=== PATIENT | male | born 1985 | race Caucasian/White ===

== ENCOUNTER 2023-01-18 18:37 | Inpatient (IN) | payer OTHER, SELFPAY ==
[2023-01-18] VITALS (18 sets, daily range): BP systolic 105–143; BP diastolic 59–93; PULSE 83–121; RESP 8–31; TEMP 36.7; O2SAT 93–100
--- NOTE | ~2023-01-18 | XR_ITS ---
XR chest 1V portable DATE: 01/18/2023 19:28 INDICATION: Shortness of breath. Overdose. TECHNIQUE: Portable supine AP chest on 01/18/2023 COMPARISON: None FINDINGS: Old healed left midclavicular shaft fracture. No pulmonary infiltrate or consolidation, pleural effusion or pulmonary vascular congestion or pneumo thorax is detected. Heart size appears within normal limits. No hilar or mediastinal enlargement. IMPRESSION: No active cardiopulmonary disease Reviewed, dictated and finalized at location A.
[2023-01-18] MEDS: NALOXONE HCL INJ 2 MG/2 ML AMP NASAL (18:37)
[2023-01-18] MEDS: NALOXONE HCL INJ 2 MG/2 ML AMP IV PUSH (18:37)
[2023-01-18] MEDS: ONDANSETRON INJ 4 MG/2 ML VIAL IV PUSH ×2 (18:53→21:00)
[2023-01-18] MEDS: SODIUM CHLORIDE 0.9% IV 1,000 ML 999 ML IV CONT ×2 (18:55→23:02)
[2023-01-18] MEDS: LORazepam INJ (*CRX) 2 MG/ML VIAL 1 MG IV PUSH (19:13)
[2023-01-18 19:28] LABS: Glucose Point of Care 186 mg/dl (65-105)
--- NOTE | 2023-01-18 19:53 | ED.OVERDOSE ---
HPI - Overdose General Chief Complaint: Overdose Stated Complaint: unknown Time Seen by Provider: 01/18/23 18:39 History of Present Illness HPI Narrative: Patient is a 28 something male, brought in by friends and dropped off in the parking lot. He was brought in unresponsive, apenic. After narcan, patient endorses history of benzo dependence as well as history of fentanyl and heroin use. He notes he has had recent hospitalizations because he has been trying to get off of benzodiazapines. Notes no nausea, no known abscesses, no fever. On further discussion with patient he does note extensive benzodiazepine and alcohol use. He states it has been several days since he last drank crease benzodiazepines and he has been having significant tremors as well as 2 withdrawal seizures. He additionally notes that he is supposed to be on Suboxone but this several days ago as well and today he decided to use fentanyl in attempt to end his life because his withdrawal symptoms are so excessive. He additionally shows me a wound that has been present from local injections over his gluteus on the right side. He notes that he went to an urgent care and they applied a dressing to this wound. Related Data Allergies Allergy/AdvReac Type Severity Reaction Status Date / Time ciprofloxacin [From Cipro] Allergy Unknown Verified 01/18/23 18:53 trazodone Allergy Unknown Verified 01/18/23 18:53 Review of Systems Review of Systems: ROS unobtainable: Yes unobtainable due to mental status PMFSH Social History Social History Substance use type: opiates and prescription drug Exam Narrative: GENERAL: ill appearing, in acute distress HEAD: Normocephalic, atraumatic. EYES: pinpoint pupils. ENT: Nares clear. Mucous membranes moist. NECK: Supple. CHEST: No spontaneous respirations. HEART: Tachycardic. Normal peripheral pulses. ABDOMEN: Soft, nontender, nondistended. EXTREMITIES: rigid extremities SKIN: Pale, cool NEURO: Unresponsive. Course Course Emergency Course: patient seen evaluated on arrival to the emergency department. He is placed on the monitor, 2 mg of intranasal Narcan given with no response. IV access is obtained and to more of IV Narcan given to patient. He has returned to spontaneous respirations and is able to provide brief history however he seems to be withholding. Will do CXR, EKG, basic lab work. Initially declines taking opiates, later does endorse taking opiates. No obvious abscesses seen. He is tremulous, concern for some benzodiazapine withdrawal. Notified by nursing that patient is suicidal. Will reevaluate. Additional history obtained by patient and placed in HPI. Concern for opiate/suboxone withdrawal in addition to benzodiazapine withdrawal. 16mg bupenorphine ordered and additional zofran and ativan. I did speak with Dr. Lucero regarding patient, agrees that ICU is best place for him at this time and he can be reevaluated in the morning. I did order some IV vancomycin for his gluteal wound. Spoke with Dr. Corbin who accepts patient for admission. CIWA protocol ordered and PRN ativan. Vital Signs Vital signs: Vital Signs Temperature 98.1 F 01/18/23 18:40 Pulse Rate 115 H 01/18/23 18:40 Blood Pressure 143/90 H 01/18/23 18:40 Pulse Oximetry 100 01/18/23 18:40 Oxygen Delivery Bag Valve Mask 01/18/23 18:40 Temperature 98.1 F 01/18/23 18:40 Pulse Rate 104 H 01/18/23 22:34 Respiratory Rate 22 H 01/18/23 22:34 Blood Pressure 106/60 01/18/23 22:34 Pulse Oximetry 100 01/18/23 22:34 Oxygen Delivery Bag Valve Mask 01/18/23 18:40 MDM - Overdose Lab Data 01/18/23 20:20 01/18/23 20:20 Labs: Lab Results 01/18/23 01/18/23 Range/Units 18:55 20:20 WBC 9.6 (4.5-10.0) K/mm3 RBC 4.47 L (4.6-6.20) M/mm3 Hgb 12.2 L (14.0-18.0) g/dL Hct 37.7 L (42.0-52.0) % MCV 84.3 (80-100) fl MCH 27.3 (26-34) pg MCHC 32.4 (32-36)
[2023-01-18 20:27] LABS: Basophils Absolute Auto 0.1 K/mm3 (0.0-0.1); Basophils Percent Auto 0.7 % (0.2-1.2); Eosinophils Absolute Auto 0.1 K/mm3 (0-0.3); Eosinophils Percent Auto 0.9 % (0-4.4); Hematocrit 37.7 % (42.0-52.0); Hemoglobin 12.2 g/dL (14.0-18.0); Immature Granulocyte Absolute 0.04 K/mm3 (0.00-0.031); Immature Granulocyte Percent A 0.4 % (0-0.5); Lymphocytes Absolute Auto 1.28 K/mm3 (0.9-3.2); Lymphocytes Percent Auto 13.4 % (18.3-44.2); Mean Corpuscular HGB Conc 32.4 g/dl (32-36); Mean Corpuscular Hemoglobin 27.3 pg (26-34); Mean Corpuscular Volume 84.3 fl (80-100); Monocytes Absolute Auto 0.7 K/mm3 (0.1-0.6); Monocytes Percent Auto 7.5 % (2.6-8.5); Neutrophils Absolute Auto 7.4 K/mm3 (1.3-6.7); Neutrophils Percent Auto 77.1 % (45.5-73.1); Platelet Count Result 261 k/mm3 (150-375); Red Blood Count 4.47 M/mm3 (4.6-6.20); Red Cell Distribution Width 14.9 % (11.5-14.5); White Blood Count 9.6 K/mm3 (4.5-10.0)
[2023-01-18] MEDS: LORazepam INJ (*CRX) 2 MG/ML VIAL IV PUSH ×2 (20:31→22:34)
[2023-01-18 20:37] LABS: Alanine Aminotransferase 54 U/L (6-50); Albumin Level 4.3 g/dL (3.5-5.1); Alkaline Phosphatase 87 U/L (38-126); Anion Gap 10 mmol/L (8-16); Aspartate Amino Transferase 33 U/L (17-59); Bilirubin,Total 0.8 mg/dL (0.2-1.3); Blood Urea Nitrogen 11 mg/dL (9-20); Calcium 8.5 mg/dL (8.4-10.2); Carbon Dioxide 26 mmol/L (22-30); Chloride 101 mmol/L (98-107); Estimated CRCL calculation 110 ml/min; Estimated Glomerular Filt Rate > 60; Ethanol < 10 mg/dL (<10); Glucose 109 mg/dL (65-110); Potassium 3.7 mmol/L (3.4-5.0); Sodium 137 mmol/L (137-145)
[2023-01-18] MEDS: BUPRENORPHINE HCL (*CRX) 2 MG SUBLINGUAL TABLET 16 MG PO (22:19)
--- NOTE | 2023-01-18 23:13 | PM.IMHP ---
H&P: HPI History of Present Illness Date/Time: 01/18/23 23:13 Chief Complaint: patient was brought in by friends and dropped off in the parking lot of the hospital. 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 He was brought in by friends and dropped off in the parking lot of the hospital. Patient had pinpoint pupils pointing towards probable opiate overdose. Narcan was given and patient became more alert but combative. On questioning, he gives history of benzodiazepine dependence as well as fentanyl and heroin use. He said that he has been using upto 20 pills of benzodiazepines in a day. It has been several days since he had benzodiazepines and he was having withdrawal seizures even while he was traveling on a bus from out of [facility] to come and see his mother. He has been prescribed Suboxone, but he decided to use fentanyl in an attempt to end his life because of excessive benzodiazepine withdrawal symptoms. He also has a large wound over his right buttock secondary to repeated fentanyl injections. He is confabulating and has flight of ideas. Given his polydrug abuse, life-threatening condition and suicide attempt and ideation, rail specialist was consulted and patient is being admitted to ICU for close management and optimization. Review of Systems Review of Systems: He is confabulating and has flight of ideas due to polydrug use ROS unobtainable: Yes unobtainable due to medical condition and unobtainable due to mental status PMFSH Past Medical History Medical History (Updated 01/19/23 @ 03:22 by Antonio Corbin MD) Illicit drug use Nicotine dependence, cigarettes, with unspecified nicotine-induced disorders Social History Social History Smoking packs per day: 1 Smoking cigarettes per day: 20.0 Years smoked: 20 Smoking pack-years: 20.00 Smoking status: Current every day smoker Tobacco type: cigarettes and e-cigarettes/vaping Alcohol intake: current Substance use type: heroin, opiates, IV drugs and prescription drug Other substance usage details: benzos Last use: 01/18/2023 Lack of Transportation: YES Lack of Food: Often True Current Housing: I Do Not Have Housing Concerned About Future Housing: YES Difficulty Paying Gas/Electric Bills: YES Difficulty Paying for Meds: YES Currently Unemployed: YES Education: High School Diploma/GED Difficulty w/ Childcare or Family Care: No Spiritual care concerns: No Meds Home Medications and Allergies Home Medications Medication Instructions Recorded Confirmed Type buprenorphine 8 mg-naloxone 2 mg 1 film sublingual Q12H 01/18/23 01/19/23 History sublingual film gabapentin 600 mg tablet 600 mg PO TID PRN neuropathy 01/18/23 01/18/23 History Allergies Allergy/AdvReac Type Severity Reaction Status Date / Time ciprofloxacin [From Cipro] Allergy Unknown Verified 01/18/23 18:53 trazodone Allergy Unknown Verified 01/18/23 18:53 Vital Signs Vital Signs - 24 hr 01/18/23 18:40 01/18/23 18:49 01/18/23 18:51 Temperature 36.7 C Pulse Rate 115 H 103 H Respiratory Rate 18 Blood Pressure 143/90 H Pulse Oximetry 100 Oxygen Delivery Bag Valve Mask 01/18/23 19:00 01/18/23 20:23 01/18/23 20:31 Temperature Pulse Rate 99 119 H 110 H Respiratory Rate 8 L 13 24 H Blood Pressure 105/59 L Pulse Oximetry 100 97 100 Oxygen Delivery 01/18/23 20:45 01/18/23 20:46 01/18/23 21:00 Temperature Pulse Rate 112 H 113 H 111 H Respiratory Rate 31 H 10 L 19 Blood Pressure 117/80 122/82 Pulse Oximetry 96 100 99 Oxygen Delivery 01/18/23 21:01 01/18/23 21:17 01/18/23 21:31 Temperature Pulse Rate 107 H 112 H 112 H Respiratory Rate 17 13 14 Blood Pressure Pulse Oximetry 96 93 93 Oxygen Delivery 01/18/23 21:46 01/18/23 22:00 01/18/23
--- NOTE | 2023-01-18 23:19 | ECG_ITS ---
Measurements Intervals [place] Rate: 70 P: -11 WI: 176 QRS: 81 QRSD: 102 T: 63 QT: 380 QTc: 410 Interpretive Statements SINUS RHYTHM ST ELEVATION IN DIFFUSE LEADS- PROBABLY EARLY REPOLARIZATION ABNORMALITY BASELINE ARTIFACT- I, II, III, AVR, AVL BORDERLINE ECG NO PREVIOUS ECG AVAILABLE FOR COMPARISON Electronically Signed On 01-19-2023 6:38:10 CDT by Lan Mas D.O.
--- NOTE | 2023-01-18 23:52 | PC.NURSE ---
When I took report the off going nurse informed me that an EKG had been done. The patient still had ekg stickers on his body and reported to me that they had done an ekg. It was not charted and I was unable to find the ekg so I did an additional ekg.
[2023-01-19] VITALS (20 sets, daily range): BP systolic 73–132; BP diastolic 52–83; PULSE 56–98; RESP 10–24; TEMP 36.3–36.9; O2SAT 93–98; BMI 22.1
--- NOTE | 2023-01-19 00:14 | ADMGEN ---
This patient, Franco Franco, was admitted to Intensive Care Unit-4 on 01/18/2023 at 2350. Patient/family oriented to hospital policies and general routines including ID bracelet, bed and alarms, visiting hours, pain management, procedures, bathroom and other care routines, personal items, smoking policy, room service/diet, and visiting hours. Information on how to activate the Rapid Response Team has been discussed. Patient/Family are encouraged to report perceived risks to care and to ask questions if they do not understand what they are told or what they should do.
[2023-01-19] MEDS: LORazepam INJ (*CRX) 2 MG/ML VIAL IV PUSH ×3 (01:24→11:42)
[2023-01-19 02:16] LABS: Influenza A QL RT-PCR Negative (Negative); Influenza B QL RT-PCR Negative (Negative); RSV RNA, RT-PCR Negative (Negative); SARS-CoV-2 RNA PCR Negative (Negative)
[2023-01-19] MEDS: MAG HYDROX/AL HYDROX/SIMETH 30 ML UDC PO (04:30)
[2023-01-19] MEDS: SODIUM CHLORIDE 0.9% IV 1,000 ML 100 ML IV CONT ×2 (04:30→14:13)
[2023-01-19 04:47] LABS: Appearance Urine Clear (Clear); Bacteria Urine None Seen /hpf; Bilirubin Urine Negative (Negative); Blood Urine Negative (Negative); Color Urine Yellow (Yellow); Glucose Urine UA Negative (Negative); Hyaline Casts Urine Present /lpf; Ketones Urine Negative (Negative); Leukocyte Esterase Ur Negative LEU/UL (Negative); Mucus Urine Present /lpf; Nitrate Urine Negative (Negative); Protein Urine Trace mg/dL (Negative); RBC Urine 0-2 /hpf (0-2); Specific Grav Ur 1.021 (1.001-1.035); Squamous Epithelial Cell Urine None seen /hpf (Few); Urobilinogen Urine 0.2 mg/dL (<2.0); WBC Urine 0-5 /hpf
[2023-01-19 04:48] LABS: Add Urine Microscopic? YES
[2023-01-19 04:50] LABS: Amphetamine Screen Urine Negative (Negative); Barbiturate Screen Urine Negative (Negative); Benzodiazepines Screen Urine Positive (Negative); Cannabinoid Screen Urine Negative (Negative); Cocaine Screen Urine Negative (Negative); Methadone Screen Urine Negative (Negative); Opiate Screen Urine Negative (Negative); Phencyclidine Screen Urine Negative (Negative)
[2023-01-19 04:59] LABS: Hematocrit 35.4 % (42.0-52.0); Hemoglobin 12.1 g/dL (14.0-18.0); Mean Corpuscular HGB Conc 34.2 g/dl (32-36); Mean Corpuscular Hemoglobin 28.3 pg (26-34); Mean Corpuscular Volume 82.7 fl (80-100); Mean Platelet Volume 9.6 fl (7.4-10.4); Platelet Count Result 276 k/mm3 (150-375); Red Blood Count 4.28 M/mm3 (4.6-6.20); Red Cell Distribution Width 14.7 % (11.5-14.5); White Blood Count 11.3 K/mm3 (4.5-10.0)
[2023-01-19 05:09] LABS: Anion Gap 9 mmol/L (8-16); Blood Urea Nitrogen 8 mg/dL (9-20); Calcium 8.4 mg/dL (8.4-10.2); Carbon Dioxide 28 mmol/L (22-30); Chloride 100 mmol/L (98-107); Estimated CRCL calculation 128 ml/min; Estimated Glomerular Filt Rate > 60; Glucose 116 mg/dL (65-110); Magnesium 1.9 mg/dL (1.6-2.3); Phosphorus 4.1 mg/dL (2.5-4.5); Potassium 3.7 mmol/L (3.4-5.0); Sodium 137 mmol/L (137-145)
[2023-01-19] MEDS: SODIUM CHLORIDE 0.9% IV 1,000 ML 999 ML IV CONT ×2 (07:47→18:20)
[2023-01-19] MEDS: ONDANSETRON INJ 4 MG/2 ML VIAL (09:04)
[2023-01-19] MEDS: GABAPENTIN 300 MG CAPSULE 600 MG PO ×3 (09:05→18:26)
[2023-01-19] MEDS: dexmedeTOMIDine 400 MCG/100 ML 400 MCG/100 ML BAG IV CONT (09:05)
--- NOTE | 2023-01-19 09:09 | WPDCNINT ---
Assessment and Plan Assessment and plan (1) Polysubstance abuse: Code(s): F19.10 - Other psychoactive substance abuse, uncomplicated Status: Acute Assessment and Plan: Pt with Benzos, ETOH, heroine and fentanyl abuse. Currently going through withdrawal so with symptoms of anxiety, tremors, hallucinations, feels like insects crawling on him. -he also stated that he had some seizures in the last week also due to withdrawal. He takes gabapentin which I will continue -starting patient on Precedex infusion -p.r.n. Valium and Ativan -additional IV fluid bolus -continue to monitor (2) Benzodiazepine withdrawal: Code(s): F13.939 - Sedative, hypnotic or anxiolytic use, unspecified with withdrawal, unspecified Status: Acute Assessment and Plan: As above (3) Opioid overdose: Code(s): T40.2X1A - Poisoning by other opioids, accidental (unintentional), initial encounter Status: Acute Assessment and Plan: As above (4) Alcohol abuse: Code(s): F10.10 - Alcohol abuse, uncomplicated Status: Acute Assessment and Plan: Will add folic acid and thiamine (5) Buttock wound: Code(s): S31.809A - Unspecified open wound of unspecified buttock, initial encounter Status: Acute Assessment and Plan: Patient has been started on vancomycin (01/18) -appreciate wound care evaluation, recommended topical application of mupirocin (6) Suicidal ideation: Code(s): R45.851 - Suicidal ideations Status: Acute Assessment and Plan: Patient did tell me that he snorted fentanyl on the day of admission so he could relieve himself from the misery of his withdrawal symptoms -when patient is medically stable will have crisis management and care coordination evaluate the patient for placement in a psych facility Plan DVT prophylaxis: Lovenox Stress ulcer prophylaxis: Protonix Nutrition: Regular diet Code Status: Full code Critical Care Time Spent: 47 minutes Due to a high probability of clinically significant, life threatening deterioration, the patient required my highest level of preparedness to intervene emergently and I personally spent this critical care time directly and personally managing the patient. This critical care time included obtaining a history; examining the patient; pulse oximetry; ordering and review of studies; arranging urgent treatment with development of a management plan; evaluation of patient's response to treatment; frequent reassessment; and discussions with other providers. It was exclusive of separately billable procedures and treating other patients and teaching time. Please see Assessment and Plan section and the rest of the note for further information on patient assessment and treatment This dictation may have been done utilizing a voice recognition system. Attempts have been made to correct errors. However, there may be uncorrected grammatical, spelling, and recognitions errors present. Hospital Staff Pharmacist Consult Note Consult date: 01/19/23 Reason for consult: Benzodiazepine, opioid, heroin, alcohol withdrawal HPI: Franco Franco is a 37 year old male with past medical history of poly substance abuse, alcohol withdrawal, multiple hospital admissions for withdrawals in the [facility] presented to the ED on 01/18/2023 after being dropped off in the parking lot. According the patient he was traveling from [place] to [place] to get enrolled in a rehab program in [place] so he could get some help for his substance and alcohol abuse. He stated he was withdrawing in the bus and had to be dropped off because he was throwing up and was very anxious. He hitch hiked with a stranger who dropped him to the ER and left. Patient states he drinks 2/5 of liquor every day, he has been injecting fentanyl, heroin and xylazine in his right buttock where he has a wound. He states he also ingests 20-24 pills of benzodiazepine daily. He has also had histo
[2023-01-19] MEDS: diazePAM (*CRX) 5 MG TABLET PO (09:16)
[2023-01-19] MEDS: MUPIROCIN 2% OINT 22 GM TUBE 1 APPLIC TOPICAL (11:25)
[2023-01-19] MEDS: FOLIC ACID 1 MG/0.2 ML INJ IV PUSH (11:26)
[2023-01-19] MEDS: THIAMINE HCL 200 MG/2 ML VIAL 100 MG IV PUSH (11:26)
[2023-01-19] MEDS: ENOXAPARIN 40 MG/0.4 ML SYRINGE SUB-Q (11:27)
[2023-01-19] MEDS: PANTOPRAZOLE SODIUM IV 40 MG VIAL IV PUSH (11:27)
[2023-01-19 12:05] LABS: Glucose Point of Care 116 mg/dl (65-105)
[2023-01-19] MEDS: diazePAM INJ (*CRX) 10 MG/2 ML SYRINGE 5 MG IV PUSH ×2 (15:59→21:39)
[2023-01-19] MEDS: BUPRENORPHINE HCL (*CRX) 2 MG SUBLINGUAL TABLET 4 MG PO (21:35)
[2023-01-19] MEDS: LACTATED RINGERS 1,000 ML 999 ML IV CONT (21:40)
--- NOTE | 2023-01-19 23:20 | PC.NURSE ---
2320 01/19 transdermal patch assessment not done because pt refused medication
[2023-01-20] VITALS (13 sets, daily range): BP systolic 94–154; BP diastolic 55–94; PULSE 53–95; RESP 15–24; TEMP 36.5–36.8; O2SAT 92–98
[2023-01-20] MEDS: LORazepam INJ (*CRX) 2 MG/ML VIAL IV PUSH ×9 (00:49→22:30)
[2023-01-20 01:18] LABS: Glucose Point of Care 136 mg/dl (65-105)
[2023-01-20] MEDS: diazePAM INJ (*CRX) 10 MG/2 ML SYRINGE 5 MG IV PUSH (03:47)
[2023-01-20] MEDS: SODIUM CHLORIDE 0.9% IV 1,000 ML 100 ML IV CONT (03:48)
[2023-01-20 04:25] LABS: Basophils Absolute Auto 0.1 K/mm3 (0.0-0.1); Basophils Percent Auto 1.4 % (0.2-1.2); Eosinophils Absolute Auto 0.1 K/mm3 (0-0.3); Eosinophils Percent Auto 2.3 % (0-4.4); Hematocrit 32.8 % (42.0-52.0); Hemoglobin 9.9 g/dL (14.0-18.0); Immature Granulocyte Absolute 0.01 K/mm3 (0.00-0.031); Immature Granulocyte Percent A 0.2 % (0-0.5); Lymphocytes Absolute Auto 1.98 K/mm3 (0.9-3.2); Lymphocytes Percent Auto 38.6 % (18.3-44.2); Mean Corpuscular HGB Conc 30.2 g/dl (32-36); Mean Corpuscular Hemoglobin 27.8 pg (26-34); Mean Corpuscular Volume 92.1 fl (80-100); Mean Platelet Volume 9.8 fl (7.4-10.4); Monocytes Absolute Auto 0.4 K/mm3 (0.1-0.6); Monocytes Percent Auto 8.6 % (2.6-8.5); Neutrophils Absolute Auto 2.5 K/mm3 (1.3-6.7); Neutrophils Percent Auto 48.9 % (45.5-73.1); Platelet Count Result 154 k/mm3 (150-375); Red Blood Count 3.56 M/mm3 (4.6-6.20); Red Cell Distribution Width 14.8 % (11.5-14.5); White Blood Count 5.1 K/mm3 (4.5-10.0)
[2023-01-20 04:37] LABS: Alanine Aminotransferase 43 U/L (6-50); Albumin Level 3.4 g/dL (3.5-5.1); Alkaline Phosphatase 106 U/L (38-126); Anion Gap 8 mmol/L (8-16); Aspartate Amino Transferase 30 U/L (17-59); Bilirubin,Total 0.3 mg/dL (0.2-1.3); Blood Urea Nitrogen 6 mg/dL (9-20); Calcium 7.7 mg/dL (8.4-10.2); Carbon Dioxide 22 mmol/L (22-30); Chloride 104 mmol/L (98-107); Estimated CRCL calculation 128 ml/min; Estimated Glomerular Filt Rate > 60; Glucose 107 mg/dL (65-110); Magnesium 2.1 mg/dL (1.6-2.3); Phosphorus 3.9 mg/dL (2.5-4.5); Potassium 3.9 mmol/L (3.4-5.0); Sodium 134 mmol/L (137-145)
--- NOTE | 2023-01-20 04:59 | PC.NURSE ---
Mom called in evening and stated the person who dropped pt off still had his phone and belongings because they answered the patients phone when she called and verified this. Mother in another state and wants patient to get his belongings and phone back-asks that care coordination calls her today. Pt is hyperfixated on getting belongings back today and thinks the man who dropped him off is supposed to go to detox this AM. Asked this nurse to call MOM for cell phone number and see if he answers phone and ask to drop belongings off. Two calls made that were unanswered. patient does not know gentleman's last name, but remembers a white car.
--- NOTE | 2023-01-20 05:14 | PC.NURSE ---
Patient's cell number is
--- NOTE | 2023-01-20 06:46 | PC.NURSE ---
Patient increasingly agitated over belongings. States he needs his suboxone increased. CIWA 14. Precedex increased to 0.4 and PRN ativan given. Patient also states that name of the person who dropped him off is Km Mejia (Matt).
[2023-01-20] MEDS: PANTOPRAZOLE SODIUM IV 40 MG VIAL IV PUSH (08:28)
[2023-01-20] MEDS: THIAMINE HCL 200 MG/2 ML VIAL 100 MG IV PUSH (08:29)
[2023-01-20] MEDS: GABAPENTIN 300 MG CAPSULE 600 MG PO ×3 (08:29→17:24)
[2023-01-20] MEDS: ENOXAPARIN 40 MG/0.4 ML SYRINGE SUB-Q (08:29)
[2023-01-20] MEDS: diazePAM INJ (*CRX) 10 MG/2 ML SYRINGE IV PUSH ×3 (08:30→20:57)
[2023-01-20] MEDS: MUPIROCIN 2% OINT 22 GM TUBE 1 APPLIC TOPICAL (08:31)
[2023-01-20] MEDS: NICOTINE (*PBKC) 21 MG PATCH 1 PATCH TRANSDERM (08:31)
[2023-01-20] MEDS: FOLIC ACID 1 MG/0.2 ML INJ IV PUSH (08:36)
[2023-01-20] MEDS: BUPRENORPHINE HCL (*CRX) 2 MG SUBLINGUAL TABLET 8 MG PO ×2 (08:36→17:23)
--- NOTE | 2023-01-20 09:30 | WPDINTPN ---
Progress Note: A&P Assessment and Plan (1) Polysubstance abuse: Code(s): F19.10 - Other psychoactive substance abuse, uncomplicated Status: Acute Assessment and Plan: Pt with Benzos, ETOH, heroine and fentanyl abuse. Currently going through withdrawal so with symptoms of anxiety, tremors, hallucinations, feels like insects crawling on him. -he also stated that he had some seizures in the last week also due to withdrawal.? He takes gabapentin which I will continue -starting patient on Precedex infusion -increase Valium -continue p.r.n. Ativan -continue maintenance IV fluids -continue to monitor (2) Benzodiazepine withdrawal: Code(s): F13.939 - Sedative, hypnotic or anxiolytic use, unspecified with withdrawal, unspecified Status: Acute Assessment and Plan: as above (3) Opioid overdose: Code(s): T40.2X1A - Poisoning by other opioids, accidental (unintentional), initial encounter Status: Acute Assessment and Plan: Increase buprenorphine (4) Alcohol abuse: Code(s): F10.10 - Alcohol abuse, uncomplicated Status: Acute Assessment and Plan: continue folic acid, thiamine -will Precedex (5) Buttock wound: Code(s): S31.809A - Unspecified open wound of unspecified buttock, initial encounter Status: Acute Assessment and Plan: appreciate wound care evaluation, recommended topical application of mupirocin -continue vancomycin (01/19) -01/19: Blood culture, preliminary results are negative (6) Suicidal ideation: Code(s): R45.851 - Suicidal ideations Status: Acute Assessment and Plan: Patient did tell me that he snorted fentanyl on the day of admission so he could relieve himself from the misery of his withdrawal symptoms -when patient is medically stable will have crisis management and care coordination evaluate the patient for placement in a psych facility Plan DVT prophylaxis:? Lovenox Stress ulcer prophylaxis:? Protonix Nutrition:? Regular diet Code Status:? Full code Critical Care Time Spent:? 33 minutes ?Due to a high probability of clinically significant, life threatening deterioration, the patient required my highest level of preparedness to intervene emergently and I personally spent this critical care time directly and personally managing the patient. This critical care time included obtaining a history; examining the patient; pulse oximetry; ordering and review of studies; arranging urgent treatment with development of a management plan; evaluation of patient's response to treatment; frequent reassessment; and discussions with other providers. It was exclusive of separately billable procedures and treating other patients and teaching time. Please see Assessment and Plan section and the rest of the note for further information on patient assessment and treatment This dictation may have been done utilizing a voice recognition system. Attempts have been made to correct errors. However, there may be uncorrected grammatical, spelling, and recognitions errors present. Subjective Date/time seen: 01/20/23 09:30 Interval history: Reason for consult: Benzodiazepine, opioid, heroin, alcohol withdrawal 01/20/2023: Patient seen and examined the ICU, is awake, alert remains anxious. Continues to have tremors, pressured speech. Requesting to increase Valium and buprenorphine. Patient denies any shortness of breath, chest pain, abdominal pain, vomiting. He did have some nausea overnight but no vomiting. Patient is hemodynamically stable, afebrile, adequate urine output Review of Systems Review of Systems: All systems reviewed & are unremarkable except as noted in HPI and below Exam Narrative: General: Anxious young gentleman with pressured speech HEENT:? Pupils equal and reactive, sclera is clear Neck:? Supple Respiratory:? Clear to auscultation bilaterally Cardiac:? S1-S2 normal, regular rate and rhythm Abdomen:? S
[2023-01-20 10:27] LABS: Vancomycin Trough 11.3 ug/mL (10.0-20.0)
--- NOTE | 2023-01-20 11:45 | PCFNICU ---
ICU Rounding Note: Pt current nutrition is Regular Last recorded weight is 83 kg up from 74.3 kg on admit. Bowel Motility: No BM reported. Labs Reviewed:Na 134, Hct 32.8,Hgb 9.9 Meds Noted:Ativan, Precedex, NS, Vancomycin. Skin: No pressure ulcers reported Additional Notes: Patient remains on regular diet with Ensure compact BID , eating 100% of meals. Diet order is appropriate. No further nutritional interventions needed. Following daily in ICU rounds, monitor for LOS every 7 days.
[2023-01-20 12:00] LABS: Glucose Point of Care 118 mg/dl (65-105)
[2023-01-20] MEDS: ONDANSETRON INJ 4 MG/2 ML VIAL IV PUSH (12:50)
[2023-01-20] MEDS: MAG HYDROX/AL HYDROX/SIMETH 30 ML UDC PO (14:39)
[2023-01-21] VITALS: BP 122/72; PULSE 90; RESP 26; TEMP 36.9; O2SAT 93
[2023-01-21] MEDS: LORazepam INJ (*CRX) 2 MG/ML VIAL IV PUSH ×7 (01:27→22:02)
[2023-01-21] MEDS: diazePAM INJ (*CRX) 10 MG/2 ML SYRINGE IV PUSH ×4 (02:59→21:08)
[2023-01-21 03:48] LABS: Estimated CRCL calculation 118 ml/min; Estimated Glomerular Filt Rate > 60
[2023-01-21 04:00] VITALS: PULSE 99
[2023-01-21 08:00] VITALS: BP 109/69; PULSE 77; PULSE 79; RESP 15; TEMP 37.2; O2SAT 93
[2023-01-21] MEDS: THIAMINE HCL 200 MG/2 ML VIAL 100 MG IV PUSH (08:22)
[2023-01-21] MEDS: GABAPENTIN 300 MG CAPSULE 600 MG PO ×3 (08:23→17:00)
[2023-01-21] MEDS: ENOXAPARIN 40 MG/0.4 ML SYRINGE SUB-Q (08:23)
[2023-01-21] MEDS: BUPRENORPHINE HCL (*CRX) 2 MG SUBLINGUAL TABLET 8 MG PO ×3 (08:23→21:07)
[2023-01-21] MEDS: PANTOPRAZOLE SODIUM IV 40 MG VIAL IV PUSH (08:24)
[2023-01-21] MEDS: MUPIROCIN 2% OINT 22 GM TUBE 1 APPLIC TOPICAL (08:24)
[2023-01-21] MEDS: NICOTINE (*PBKC) 21 MG PATCH 1 PATCH TRANSDERM (08:24)
[2023-01-21] MEDS: FOLIC ACID 1 MG/0.2 ML INJ IV PUSH (09:52)
[2023-01-21 10:16] LABS: Basophils Absolute Auto 0.1 K/mm3 (0.0-0.1); Basophils Percent Auto 0.8 % (0.2-1.2); Eosinophils Absolute Auto 0.1 K/mm3 (0-0.3); Eosinophils Percent Auto 1.8 % (0-4.4); Hematocrit 35.8 % (42.0-52.0); Hemoglobin 11.2 g/dL (14.0-18.0); Immature Granulocyte Absolute 0.02 K/mm3 (0.00-0.031); Immature Granulocyte Percent A 0.3 % (0-0.5); Lymphocytes Percent Auto 24.6 % (18.3-44.2); Mean Corpuscular HGB Conc 31.3 g/dl (32-36); Mean Corpuscular Volume 86.3 fl (80-100); Mean Platelet Volume 9.4 fl (7.4-10.4); Monocytes Absolute Auto 0.5 K/mm3 (0.1-0.6); Monocytes Percent Auto 7.5 % (2.6-8.5); Platelet Count Result 184 k/mm3 (150-375); Red Blood Count 4.15 M/mm3 (4.6-6.20); Red Cell Distribution Width 14.6 % (11.5-14.5); White Blood Count 6.1 K/mm3 (4.5-10.0)
[2023-01-21 10:28] LABS: Alanine Aminotransferase 35 U/L (6-50); Albumin Level 3.4 g/dL (3.5-5.1); Alkaline Phosphatase 90 U/L (38-126); Anion Gap 7 mmol/L (8-16); Aspartate Amino Transferase 25 U/L (17-59); Bilirubin,Total 0.7 mg/dL (0.2-1.3); Blood Urea Nitrogen 8 mg/dL (9-20); Calcium 7.8 mg/dL (8.4-10.2); Carbon Dioxide 30 mmol/L (22-30); Chloride 100 mmol/L (98-107); Estimated CRCL calculation 134 ml/min; Estimated Glomerular Filt Rate > 60; Glucose 90 mg/dL (65-110); Magnesium 1.9 mg/dL (1.6-2.3); Potassium 3.6 mmol/L (3.4-5.0); Sodium 137 mmol/L (137-145)
[2023-01-21 12:00] VITALS: PULSE 86
--- NOTE | 2023-01-21 13:31 | PM.IMPN ---
Progress Note: A&P Assessment and Plan (1) Polysubstance abuse: Code(s): F19.10 - Other psychoactive substance abuse, uncomplicated Status: Acute (2) Benzodiazepine withdrawal: Code(s): F13.939 - Sedative, hypnotic or anxiolytic use, unspecified with withdrawal, unspecified Status: Acute (3) Opioid overdose: Code(s): T40.2X1A - Poisoning by other opioids, accidental (unintentional), initial encounter Status: Acute (4) Alcohol abuse: Code(s): F10.10 - Alcohol abuse, uncomplicated Status: Acute (5) Buttock wound: Code(s): S31.809A - Unspecified open wound of unspecified buttock, initial encounter Status: Acute (6) Suicidal ideation: Code(s): R45.851 - Suicidal ideations Status: Acute Plan Patient presented on brought in by friends and drop problem parking lot of the hospital. Patient in 1 to will indicating no opiate overdose allergies Narcan when given and patient became more alert but combative he has a history of fentanyl and heroin use as well as benzodiazepine. Has been using 20 pills of benzodiazepines every day. It has been several days since he had benzodiazepines and was having withdrawal seizure he came from [place] to get to adduction sign clear. Has been prescribed Suboxone I also has been using fentanyl injections. His been admitted to the ICU due to his poorly drug abuse suicide attempt/ideation. He continues to have withdrawal symptoms. He was treated with Precedex drip until 01/20/2023. Is he has been on IV diazepam and p.r.n. lorazepam here. He has also been started on Suboxone currently at 80 mg b.i.d. does. He had right gluteal abscess secondary to intramuscular injection for which has been started on IV vancomycin. Psych will be consulted/crisis team when medically stable. He likely will need to go to drug rehabilitation center for further stabilization given possible suicide intent/ideation likely will need psychiatry evaluation for him to clear to go to a drug rehabilitation center from here. Add clonidine DVT prophylaxis:? Lovenox Stress ulcer prophylaxis:? Protonix Nutrition:? Regular diet Code Status:? Full code Subjective Date/time seen: 01/21/23 13:31 Interval history: Patient presented on brought in by friends and drop problem parking lot of the hospital. Patient in 1 to will indicating no opiate overdose allergies Narcan when given and patient became more alert but combative he has a history of fentanyl and heroin use as well as benzodiazepine. Has been using 20 pills of benzodiazepines every day. It has been several days since he had benzodiazepines and was having withdrawal seizure he came from [place] to get to adduction sign clear. Has been prescribed Suboxone I also has been using fentanyl injections. His been admitted to the ICU due to his poorly drug abuse suicide attempt/ideation. He continues to have withdrawal symptoms. He was treated with Precedex drip until 01/20/2023. Is he has been on IV diazepam and p.r.n. lorazepam here. He has also been started on Suboxone currently at 80 mg b.i.d. does. He had right gluteal abscess secondary to intramuscular injection for which has been started on IV vancomycin. Psych will be consulted/crisis team when medically stable. He likely will need to go to drug rehabilitation center for further stabilization given possible suicide intent/ideation likely will need psychiatry evaluation for him to clear to go to a drug rehabilitation center from here. Review of Systems Review of Systems: All systems reviewed & are unremarkable except as noted in HPI and below Exam Narrative: General: Anxious young gentleman with pressured speech HEENT:? Pupils dilated sclera is clear Neck:? Supple Respiratory:? Clear to auscultation bilaterally coarse breath sound Cardiac:? S1-S2 normal, regular rate and rhythm Abdomen:? Soft, nontender, nondistended, normoactive bowel s
[2023-01-21] MEDS: cloNIDine HCL 0.1 MG TABLET PO ×2 (14:58→21:09)
[2023-01-21 16:00] VITALS: BP 124/80; PULSE 69; RESP 15; TEMP 37.3; O2SAT 94
[2023-01-22] MEDS: LORazepam INJ (*CRX) 2 MG/ML VIAL IV PUSH ×10 (00:15→23:03)
[2023-01-22 00:30] VITALS: BP 106/68; PULSE 74
[2023-01-22] MEDS: diazePAM INJ (*CRX) 10 MG/2 ML SYRINGE IV PUSH ×2 (02:41→08:08)
[2023-01-22] MEDS: BUPRENORPHINE HCL (*CRX) 2 MG SUBLINGUAL TABLET 8 MG PO ×3 (05:48→22:01)
[2023-01-22] MEDS: cloNIDine HCL 0.1 MG TABLET PO ×3 (05:49→22:01)
[2023-01-22 08:00] VITALS: BP 95/70; PULSE 65; PULSE 69; RESP 12; TEMP 36.6; O2SAT 95
[2023-01-22] MEDS: FOLIC ACID 1 MG/0.2 ML INJ IV PUSH (08:06)
[2023-01-22] MEDS: GABAPENTIN 300 MG CAPSULE 600 MG PO ×3 (08:06→16:56)
[2023-01-22] MEDS: PANTOPRAZOLE SODIUM IV 40 MG VIAL IV PUSH (08:07)
[2023-01-22] MEDS: THIAMINE HCL 200 MG/2 ML VIAL 100 MG IV PUSH (08:07)
[2023-01-22] MEDS: NICOTINE (*PBKC) 21 MG PATCH 1 PATCH TRANSDERM (08:07)
[2023-01-22] MEDS: MUPIROCIN 2% OINT 22 GM TUBE 1 APPLIC TOPICAL (08:08)
--- NOTE | 2023-01-22 11:29 | PM.IMPN ---
Progress Note: A&P Assessment and Plan (1) Polysubstance abuse: Code(s): F19.10 - Other psychoactive substance abuse, uncomplicated Status: Acute (2) Benzodiazepine withdrawal: Code(s): F13.939 - Sedative, hypnotic or anxiolytic use, unspecified with withdrawal, unspecified Status: Acute (3) Opioid overdose: Code(s): T40.2X1A - Poisoning by other opioids, accidental (unintentional), initial encounter Status: Acute (4) Alcohol abuse: Code(s): F10.10 - Alcohol abuse, uncomplicated Status: Acute (5) Buttock wound: Code(s): S31.809A - Unspecified open wound of unspecified buttock, initial encounter Status: Acute (6) Suicidal ideation: Code(s): R45.851 - Suicidal ideations Status: Acute Plan Patient presented on brought in by friends and dropped him in the parking lot of the hospital. Patient was brought in unresponsive apneic indicating opiate overdose. Narcan was given and patient became more alert but combative. He has a history of fentanyl and heroin use as well as benzodiazepine. Has been using 20 pills of benzodiazepines every day. It has been off benzos several days and was having withdrawal seizure he came from [place] to get to addiction center here. Has been prescribed Suboxone but also has been using fentanyl injections. His been admitted to the ICU due to his poorly drug abuse suicide attempt/ideation. He continues to have withdrawal symptoms. He was treated with Precedex drip until 01/20/2023. Is he has been on IV diazepam and p.r.n. lorazepam here. He has also been started on Suboxone currently at 80 mg b.i.d. does. He had right gluteal abscess secondary to intramuscular injection for which has been started on IV vancomycin. Psych will be consulted/crisis team when medically stable. He likely will need to go to drug rehabilitation center for further stabilization however given possible suicide intent/ideation likely will need psychiatry evaluation for him to clear to go to a drug rehabilitation center from here. Will switch his diazepam to oral today. Continue Suboxone at 8 mg q.8 hours for his opiate dependence Added clonidine has also helped with his withdrawal symptoms to some extent. Which will be continued DVT prophylaxis:? Lovenox Stress ulcer prophylaxis:? Protonix Nutrition:? Regular diet Code Status:? Full code Subjective Date/time seen: 01/22/23 11:29 Interval history: Patient presented on brought in by friends and drop problem parking lot of the hospital. Patient in 1 to will indicating no opiate overdose allergies Narcan when given and patient became more alert but combative he has a history of fentanyl and heroin use as well as benzodiazepine. Has been using 20 pills of benzodiazepines every day. It has been several days since he had benzodiazepines and was having withdrawal seizure he came from [place] to get to adduction sign clear. Has been prescribed Suboxone I also has been using fentanyl injections. His been admitted to the ICU due to his poorly drug abuse suicide attempt/ideation. He continues to have withdrawal symptoms. He was treated with Precedex drip until 01/20/2023. Is he has been on IV diazepam and p.r.n. lorazepam here. He has also been started on Suboxone currently at 80 mg b.i.d. does. He had right gluteal abscess secondary to intramuscular injection for which has been started on IV vancomycin. Psych will be consulted/crisis team when medically stable. He likely will need to go to drug rehabilitation center for further stabilization given possible suicide intent/ideation likely will need psychiatry evaluation for him to clear to go to a drug rehabilitation center from here. 01/22/2023: Overnight events. Still feels little tremulous. Vitals reviewed. Discussed with the nursing staff. Review of Systems Review of Systems: All systems reviewed & are unremarkable except as noted in HPI and
[2023-01-22] MEDS: diazePAM (*CRX) 10 MG TABLET PO ×2 (12:21→16:56)
[2023-01-22 16:00] VITALS: BP 111/72; PULSE 61; RESP 12; TEMP 36.8; O2SAT 98
[2023-01-22 20:00] VITALS: PULSE 90
[2023-01-22 22:01] VITALS: BP 129/74; PULSE 81
[2023-01-23] VITALS: BP 122/96; PULSE 73; RESP 17; TEMP 36.6; O2SAT 100
[2023-01-23] MEDS: diazePAM (*CRX) 10 MG TABLET PO ×4 (00:01→18:22)
[2023-01-23] MEDS: LORazepam INJ (*CRX) 2 MG/ML VIAL IV PUSH ×7 (05:41→23:23)
[2023-01-23] MEDS: cloNIDine HCL 0.1 MG TABLET PO ×3 (07:38→22:24)
[2023-01-23] MEDS: BUPRENORPHINE HCL (*CRX) 2 MG SUBLINGUAL TABLET 8 MG PO ×3 (07:38→22:22)
[2023-01-23 07:43] VITALS: BP 107/66; PULSE 69; RESP 16; TEMP 36.5; O2SAT 96
[2023-01-23 08:00] VITALS: PULSE 90
[2023-01-23] MEDS: PANTOPRAZOLE SODIUM IV 40 MG VIAL IV PUSH (08:24)
[2023-01-23] MEDS: GABAPENTIN 300 MG CAPSULE 600 MG PO ×3 (08:24→16:23)
[2023-01-23] MEDS: THIAMINE HCL 200 MG/2 ML VIAL 100 MG IV PUSH (08:25)
[2023-01-23] MEDS: FOLIC ACID 1 MG/0.2 ML INJ IV PUSH (08:26)
[2023-01-23] MEDS: NICOTINE (*PBKC) 21 MG PATCH 1 PATCH TRANSDERM (08:26)
[2023-01-23] MEDS: MUPIROCIN 2% OINT 22 GM TUBE 1 APPLIC TOPICAL (09:57)
[2023-01-23] MEDS: SULFAMETHOXAZOLE/TRIMETHOPRIM 800/160 MG DS TABLET 1 TAB PO ×2 (09:57→20:55)
[2023-01-23 12:00] VITALS: PULSE 67
[2023-01-23 16:00] VITALS: BP 101/72; PULSE 52; RESP 12; TEMP 36.6; O2SAT 100
--- NOTE | 2023-01-23 17:30 | PM.IMPN ---
Progress Note: A&P Assessment and Plan (1) Polysubstance abuse: Code(s): F19.10 - Other psychoactive substance abuse, uncomplicated Status: Acute (2) Benzodiazepine withdrawal: Code(s): F13.939 - Sedative, hypnotic or anxiolytic use, unspecified with withdrawal, unspecified Status: Acute (3) Opioid overdose: Code(s): T40.2X1A - Poisoning by other opioids, accidental (unintentional), initial encounter Status: Acute (4) Alcohol abuse: Code(s): F10.10 - Alcohol abuse, uncomplicated Status: Acute (5) Buttock wound: Code(s): S31.809A - Unspecified open wound of unspecified buttock, initial encounter Status: Acute (6) Suicidal ideation: Code(s): R45.851 - Suicidal ideations Status: Acute Plan Patient presented on brought in by friends and dropped him in the parking lot of the hospital. Patient was brought in unresponsive apneic indicating opiate overdose. Narcan was given and patient became more alert but combative. He has a history of fentanyl and heroin use as well as benzodiazepine. Has been using 20 pills of benzodiazepines every day. It has been off benzos several days and was having withdrawal seizure he came from [place] to get to addiction center here. Has been prescribed Suboxone but also has been using fentanyl injections. His been admitted to the ICU due to his poorly drug abuse suicide attempt/ideation. He continues to have withdrawal symptoms. He was treated with Precedex drip until 01/20/2023. Is he has been on IV diazepam and p.r.n. lorazepam here. He has also been started on Suboxone currently at 80 mg b.i.d. does. He had right gluteal abscess secondary to intramuscular injection for which has been started on IV vancomycin. Psych will be consulted/crisis team when medically stable. He likely will need to go to drug rehabilitation center for further stabilization however given possible suicide intent/ideation likely will need psychiatry evaluation for him to clear to go to a drug rehabilitation center from here. Switch to oral diazepam. Continue IV lorazepam p.r.n. as ordered today. COntinue Suboxone at 8 mg q.8 hours for his opiate dependence Added clonidine has also helped with his withdrawal symptoms to some extent. Which will be continued DVT prophylaxis:? Lovenox Stress ulcer prophylaxis:? Protonix Nutrition:? Regular diet Code Status:? Full code Subjective Date/time seen: 01/23/23 17:30 Interval history: Patient presented on brought in by friends and drop problem parking lot of the hospital. Patient in 1 to will indicating no opiate overdose allergies Narcan when given and patient became more alert but combative he has a history of fentanyl and heroin use as well as benzodiazepine. Has been using 20 pills of benzodiazepines every day. It has been several days since he had benzodiazepines and was having withdrawal seizure he came from [place] to get to adduction sign clear. Has been prescribed Suboxone I also has been using fentanyl injections. His been admitted to the ICU due to his poorly drug abuse suicide attempt/ideation. He continues to have withdrawal symptoms. He was treated with Precedex drip until 01/20/2023. Is he has been on IV diazepam and p.r.n. lorazepam here. He has also been started on Suboxone currently at 80 mg b.i.d. does. He had right gluteal abscess secondary to intramuscular injection for which has been started on IV vancomycin. Psych will be consulted/crisis team when medically stable. He likely will need to go to drug rehabilitation center for further stabilization given possible suicide intent/ideation likely will need psychiatry evaluation for him to clear to go to a drug rehabilitation center from here. 01/22/2023: Overnight events. Still feels little tremulous. Vitals reviewed. Discussed with the nursing staff. 01/23/2023: Reports feels more tremulous and anxious. No nausea vomitin
[2023-01-23 22:25] VITALS: BP 107/73; PULSE 87
[2023-01-24] MEDS: diazePAM (*CRX) 10 MG TABLET PO ×3 (01:39→13:52)
[2023-01-24] MEDS: LORazepam INJ (*CRX) 2 MG/ML VIAL IV PUSH ×2 (04:26→11:50)
[2023-01-24 05:04] LABS: Basophils Absolute Auto 0.1 K/mm3 (0.0-0.1); Basophils Percent Auto 1.7 % (0.2-1.2); Eosinophils Absolute Auto 0.3 K/mm3 (0-0.3); Eosinophils Percent Auto 4.7 % (0-4.4); Hematocrit 39.5 % (42.0-52.0); Hemoglobin 12.8 g/dL (14.0-18.0); Immature Granulocyte Absolute 0.03 K/mm3 (0.00-0.031); Immature Granulocyte Percent A 0.5 % (0-0.5); Lymphocytes Absolute Auto 2.06 K/mm3 (0.9-3.2); Lymphocytes Percent Auto 34.7 % (18.3-44.2); Mean Corpuscular HGB Conc 32.4 g/dl (32-36); Mean Corpuscular Hemoglobin 27.8 pg (26-34); Mean Corpuscular Volume 85.7 fl (80-100); Mean Platelet Volume 9.3 fl (7.4-10.4); Monocytes Absolute Auto 0.4 K/mm3 (0.1-0.6); Monocytes Percent Auto 7.1 % (2.6-8.5); Neutrophils Percent Auto 51.3 % (45.5-73.1); Platelet Count Result 250 k/mm3 (150-375); Red Blood Count 4.61 M/mm3 (4.6-6.20); Red Cell Distribution Width 14.9 % (11.5-14.5); White Blood Count 5.9 K/mm3 (4.5-10.0)
[2023-01-24 05:22] LABS: Anion Gap 12 mmol/L (8-16); Blood Urea Nitrogen 21 mg/dL (9-20); Calcium 8.9 mg/dL (8.4-10.2); Carbon Dioxide 27 mmol/L (22-30); Chloride 96 mmol/L (98-107); Estimated CRCL calculation 118 ml/min; Estimated Glomerular Filt Rate > 60; Glucose 125 mg/dL (65-110); Magnesium 2.1 mg/dL (1.6-2.3); Potassium 4.4 mmol/L (3.4-5.0); Sodium 135 mmol/L (137-145)
[2023-01-24 08:00] VITALS: BP 103/71; PULSE 78; RESP 12; TEMP 36.4; O2SAT 98
[2023-01-24] MEDS: THIAMINE HCL 200 MG/2 ML VIAL 100 MG IV PUSH (08:12)
[2023-01-24] MEDS: PANTOPRAZOLE SODIUM IV 40 MG VIAL IV PUSH (08:12)
[2023-01-24] MEDS: FOLIC ACID 1 MG/0.2 ML INJ IV PUSH (08:12)
[2023-01-24] MEDS: MUPIROCIN 2% OINT 22 GM TUBE 1 APPLIC TOPICAL (08:13)
[2023-01-24] MEDS: BUPRENORPHINE HCL (*CRX) 2 MG SUBLINGUAL TABLET 8 MG PO ×2 (08:13→14:16)
[2023-01-24] MEDS: SULFAMETHOXAZOLE/TRIMETHOPRIM 800/160 MG DS TABLET 1 TAB PO (08:13)
[2023-01-24] MEDS: GABAPENTIN 300 MG CAPSULE 600 MG PO ×2 (08:13→13:52)
[2023-01-24] MEDS: cloNIDine HCL 0.1 MG TABLET PO ×2 (08:13→13:52)
--- NOTE | 2023-01-24 08:41 | PC.NURSE ---
Reviewed AM medications to be given. RN notified patient an hour after PO medications were given we could reevaluate his withdrawals. No signs of tremors at the time of assessment, patient asleep prior to entering the room.
--- NOTE | 2023-01-24 08:43 | PC.NURSE ---
Patient stated get out of here you darian as RN was leaving the room.
--- NOTE | 2023-01-24 08:57 | PC.NURSE ---
Dr. Arredondo notified of patient assessment and patient behavior.
--- NOTE | 2023-01-24 11:30 | PC.NURSE ---
Security personnel and Becca, ICU Director at bedside.
--- NOTE | 2023-01-24 14:24 | PM.DS ---
DS: Admitting Diagnosis Discharge Date 01/24/2023 Admitting Diagnosis Altered mental status DS: Discharge Diagnosis Discharge Diagnosis (1) Polysubstance abuse: Code(s): F19.10 - Other psychoactive substance abuse, uncomplicated Status: Acute (2) Benzodiazepine withdrawal: Code(s): F13.939 - Sedative, hypnotic or anxiolytic use, unspecified with withdrawal, unspecified Status: Acute (3) Opioid overdose: Code(s): T40.2X1A - Poisoning by other opioids, accidental (unintentional), initial encounter Status: Acute (4) Alcohol abuse: Code(s): F10.10 - Alcohol abuse, uncomplicated Status: Acute (5) Buttock wound: Code(s): S31.809A - Unspecified open wound of unspecified buttock, initial encounter Status: Acute (6) Suicidal ideation: Code(s): R45.851 - Suicidal ideations Status: Acute DS: Summary Hospital Course Hospital Course: Patient presented on brought in by friends and dropped him in the parking lot of the hospital.? Patient was brought in unresponsive apneic indicating opiate overdose.? Narcan was given and patient became more alert but combative.? He has a history of fentanyl and heroin use as well as benzodiazepine.? Has been using 20 pills of benzodiazepines every day.? It has been off benzos several days and was having withdrawal seizure while he came from [place] to get to addiction center here.? Has been prescribed Suboxone but also has been using fentanyl injections.? He has been admitted to the ICU due to his poly drug abuse suicide attempt/ideation.? He continues to have withdrawal symptoms and was managed as such.? He was initially treated with Precedex drip until 01/20/2023.? He has then been switched to IV diazepam and p.r.n. lorazepam here.? He has also been started on Suboxone currently at 8 mg b.i.d. dose.? He had right gluteal abscess secondary to intramuscular injection for which has been started on IV vancomycin.? Psych will be consulted/crisis team when medically stable.? He will need to go to drug rehabilitation center for further stabilization however given possible suicide intent/ideation crisis team was contacted to clear him from suicide standpoint. This was arranged for him to go to [facility] in [place] and transportation was arranged Time Spent with Patient Time attestation: Total time spent providing and/or coordinating discharge services: 50 minutes Exam Narrative: General: Anxious young gentleman with pressured speech HEENT:? Pupils dilated sclera is clear Neck:? Supple Respiratory:? Clear to auscultation bilaterally coarse breath sound Cardiac:? S1-S2 normal, regular rate and rhythm Abdomen:? Soft, nontender, nondistended, normoactive bowel sounds Extremities:? No edema, palpable pedal pulses Neuro:? Patient is awake, alert, oriented, able to answer questions and follows simple commands, tremulous Skin:? Right buttock wound 5 cm x 3 cm, wound bed is pink, no signs of infection Psych:? Pressured speech, anxious DS: Data Data Completed and Pending Labs on day of discharge: Labs from last 24 hours 01/24/23 04:42 WBC 5.9 RBC 4.61 Hgb 12.8 L Hct 39.5 L MCV 85.7 MCH 27.8 MCHC 32.4 RDW 14.9 H Plt Count 250 MPV 9.3 Immature Gran % (Auto) 0.5 Neut % (Auto) 51.3 Lymph % (Auto) 34.7 [place] % (Auto) 7.1 Eos % (Auto) 4.7 H Baso % (Auto) 1.7 H Lymph # (Auto) 2.06 [place] # (Auto) 0.4 Eos # (Auto) 0.3 Baso # (Auto) 0.1 Abs Immat Gran (auto) 0.03 Absolute Neuts (auto) 3.0 Absolute Nucleated RBC 0.0 Nucleated RBC % 0.0 Sodium 135 L Potassium 4.4 Chloride 96 L Carbon Dioxide 27 Anion Gap 12 BUN 21 H D Creatinine 0.80 Estim Creat Clear Calc 118 Estimated GFR > 60 Glucose 125 H Calcium 8.9 Magnesium 2.1 Preliminary micro results at discharge 01/19/23 01:26 Blood Culture - Preliminary Blood Imaging Radiologist's impression: ITS Impressions Chest X
--- NOTE | 2023-01-24 14:26 | PC.NURSE ---
Zan, Substance Abuse counselor at bedside. Patient apologized for his behavior to staff.
== END 2023-01-24 16:01 | disposition other institution (70) | DRG 817 ==
LOC: ANHED 19:32 → ANHICU 23:11
PROVIDERS: Internal Medicine; Admitting Provider Family Medicine; Emergency Provider Student in an Organized Health Care Education/Training Program; Visit Provider Internal Medicine
DX: T40.2X2A Poisoning by other opioids, intentional self-harm, initial encounter (principal); R45.851 Suicidal ideations; F19.239 Other psychoactive substance dependence with withdrawal, unspecified; F11.20 Opioid dependence, uncomplicated; F10.10 Alcohol abuse, uncomplicated; L02.31 Cutaneous abscess of buttock; G40.89 Other seizures; F17.210 Nicotine dependence, cigarettes, uncomplicated; L03.317 Cellulitis of buttock
CPT/HCPCS: 36415; 71045; 80048; 80053; 80202; 80307; 81001; 82565; 82948; 83735; 84100; 84443; 85025; 85027; 87040; 87637; 93005; 96374; 96375; 96376; 99285; A9270; C9113; J1650; J2060; J2310; J2405; J3360; J3370; J3411; J7030; J7120